=== PATIENT | female | born 1940 | race Hispanic/Latino ===

== ENCOUNTER 2019-03-24 19:02 | Inpatient (IN) | payer MEDICARE ==
[2019-03-24] MEDS ORDERED: SODIUM CHLORIDE 0.9% 250ML 250 ML IV ONE (19:37)
[2019-03-24] MEDS ORDERED: ONDANSETRON 4 MG/2 ML INJ IV ONE (19:37)
--- NOTE | 2019-03-24 19:40 | Emergency Department Report ---
ED General Adult HPI - General Chief complaint: Weakness Stated complaint: WEAKNESS Time Seen by Provider: 03/24/19 19:22 Source: patient, EMS (by EMS disclaimer), RN notes reviewed, old records reviewed Mode of arrival: Stretcher Limitations: No Limitations - History of Present Illness Initial comments: Primary care Dr.: Dr Nicole Noriega Cardiology: Dr Yasmine Jeff Past medical history: Heart disease, diabetes, hypertension, high cholesterol This is a pleasant 78-year-old female who is not known to this provider previously. Patient reports being in her usual state of health earlier on today, when at, around 6:00 PM, developed a change in sensation on the roof top of her mouth, feel flushed, and also felt unsteady. She has no physical pain at this time. She denies additional symptoms at this time. She states that today was "a good day for me." She reports being quite active today, reports compliance with her medications, denies dietary indiscretions, and state that symptoms do not have exacerbating, relieving factors, or radiation. -: Sudden Consistency: other Improves with: other Worsens with: other Associated Symptoms: other - Related Data Home Medications Medication Instructions Recorded Confirmed Last Taken Allopurinol 100 mg PO DAILY 08/02/17 03/24/19 Unknown Irbesartan 1 tab PO DAILY 03/24/19 03/24/19 Unknown Previous Rx's Medication Instructions Recorded Last Taken Type AtorvaSTATin [Lipitor] 40 mg PO QHS #30 tablet 08/06/17 Unknown Rx Cholecalciferol (Vitamin D3) 1,000 unit PO DAILY #30 capsule 08/06/17 Unknown Rx [Vitamin D3] Clopidogrel [Plavix] 75 mg PO QDAY #30 tablet 08/06/17 Unknown Rx Glimepiride [Amaryl] 1 mg PO QAM #30 tablet 08/06/17 Unknown Rx Levothyroxine [Synthroid] 100 mcg PO QAM@0600 #30 tablet 08/06/17 Unknown Rx Metformin HCl [metFORMIN ER 500 mg PO BID #60 [id number] 08/06/17 Unknown Rx Gastric] Metoprolol [Lopressor TAB] 25 mg PO BID #60 tablet 08/06/17 Unknown Rx NIFEdipine XL [Procardia Xl] 60 mg PO QDAY #30 tablet 08/06/17 Unknown Rx Allergies Allergy/AdvReac Type Severity Reaction Status Date / Time No Known Allergies Allergy Verified 08/02/17 23:12 ED Review of Systems ROS: Stated complaint: WEAKNESS Other details as noted in HPI Constitutional: malaise. denies: fever Eyes: denies: eye discharge, vision change ENT: denies: congestion Respiratory: denies: cough, wheezing Cardiovascular: denies: chest pain, syncope Gastrointestinal: nausea. denies: abdominal pain, vomiting Genitourinary: denies: dysuria Musculoskeletal: denies: myalgia Skin: denies: lesions Neurological: weakness Hematological/Lymphatic: denies: easy bleeding ED Past Medical Hx - Past Medical History Previous Medical History?: Yes Hx Hypertension: Yes Hx Heart Attack/AMI: Yes Hx Diabetes: Yes Additional medical history: hypothyroid, gout - Surgical History Past Surgical History?: Yes Hx Pacemaker: No Additional Surgical History: hysterectomy, Bilateral knee replacement, and right hip, stents x2 - Social History Smoking Status: Never Smoker Substance Use Type: None - Medications Home Medications: Home Medications Medication Instructions Recorded Confirmed Last Taken Type Allopurinol 100 mg PO DAILY 08/02/17 03/24/19 Unknown History AtorvaSTATin [Lipitor] 40 mg PO QHS #30 tablet 08/06/17 03/24/19 Unknown Rx Cholecalciferol (Vitamin D3) 1,000 unit PO DAILY #30 capsule 08/06/17 03/24/19 Unknown Rx [Vitamin D3] Clopidogrel [Plavix] 75 mg PO QDAY #30 tablet 08/06/17 03/24/19 Unknown Rx Glimepiride [Amaryl] 1 mg PO QAM #30 tablet 08/06/17 03/24/19 Unknown Rx Levothyroxine [Synthroid] 100 mcg PO QAM@0600 #30 tablet 08/06/17 03/24/19 Un known Rx Metformin HCl [metFORMIN ER 500 mg PO BID #60 [id number] 08/06/17 03/24/19 Unknown Rx Gastric] Metoprolol [Lopressor TAB] 25 mg PO BID #60 tablet 08/06/17 03/24/19 Unknown Rx NIFEdipine XL [Procardia Xl] 60 mg PO QDAY #30 tablet 08/06/17 03/24/19 Unknown Rx Irbesartan 1 tab PO DAILY 03/24/19 03/24/19 Unknown History ED Physical Exam - General Limitations: No Limitations General appearance: alert, in no apparent distress - Head Head exam: Present: atraumatic, normocephalic - Eye Eye exam: Present: normal appearance, PERRL, EOMI, other (visual acuity intact to finger counting, color perception, reading at a close distance). Absent: nystagmus - ENT ENT exam: Present: normal exam, normal orophraynx, mucous membranes moist, normal external ear exam - Neck Neck exam: Present: normal inspection, full ROM. Absent: tenderness, meningismus - Respiratory Respiratory exam: Present: normal lung sounds bilaterally. Absent: respiratory distress - Cardiovascular Cardiovascular Exam: Present: regular rate, normal rhythm, normal heart sounds. Absent: bradycardia, tachycardia, irregular rhythm, systolic murmur, diastolic murmur, rubs, gallop - GI/Abdominal GI/Abdominal exam: Present: soft. Absent: distended, tenderness, guarding, rebound, rigid, pulsatile mass - Extremities Exam Extremities exam: Present: normal inspection, full ROM, other (2+ pulses noted in the bilateral upper, lower extremities. There is no long bone tenderness. Musculoskeletal compartments are soft. The pelvis is stable.). Absent: pedal edema, joint swelling, calf tenderness - Back Exam Back exam: Present: normal inspection, full ROM. Absent: tenderness, CVA tenderness (R), CVA tenderness (L), paraspinal tenderness, vertebral tenderness - Neurological Exam Neurological exam: Present: alert (there is no pronator drift. There is normal [id number]. Patient is very tremulous in her bilateral upper extremities, and indicates a chronic intention tremor), oriented X3, abnormal gait (patient is walking with a broad-based slightly unsteady gait), other (there is no facial droop. The tongue is midline. Extraocular movements are intact bilaterally. Patient speaking in full complete sentences. Shoulder shrug is intact bilaterally. Hearing is grossly intact bilaterally. Visual acuity intact to finger counting and color perception at a close distance. 5/5 strength 4 extremities. Sensation intact to light touch in 4 extremities.). Absent: motor sensory deficit - Psychiatric Psychiatric exam: Present: anxious - Skin Skin exam: Present: warm, dry, intact, normal color. Absent: rash ED Course Vital Signs 03/24/19 03/24/19 03/24/19 19:21 19:30 20:00 Temperature 98.2 F Pulse Rate 60 60 59 L Respiratory 12 12 11 L Rate Blood Pressure 114/46 114/46 121/48 O2 Sat by Pulse 98 96 Oximetry 03/24/19 03/24/19 03/24/19 20:30 21:00 21:30 Temperature Pulse Rate 57 L 55 L 54 L Respiratory 11 L 13 13 Rate Blood Pressure 121/48 116/54 132/39 O2 Sat by Pulse 97 97 97 Oximetry 03/24/19 03/24/19 22:00 22:30 Temperature Pulse Rate 54 L 56 L Respiratory 17 21 Rate Blood Pressure 126/43 137/44 O2 Sat by Pulse 96 91 Oximetry - Reevaluation(s) Reevaluation #1: 03/24/19 21:22 Discussed with Hospital physician, Dr. Jiang, who has accepted the patient to the medical service. Patient resting comfortably in stretcher, and in no acute distress. ED Medical Decision Making - Lab Data Result diagrams: 03/24/19 19:57 03/24/19 19:57 Vital Signs 03/24/19 19:21 Temperature 98.2 F Pulse Rate 60 Respiratory 12 Rate Blood Pressure 114/46 O2 Sat by Pulse 98 Oximetry Lab Results 03/24/19 03/24/19 03/24/19 Range/Units 19:57 19:57 19:57 WBC 11.3 H (4.5-11.0) K/mm3 RBC 3.91 (3.65-5.03) M/mm3 Hgb 12.1 (10.1-14.3) gm/dl Hct 36.2 (30.3-42.9) % MCV 93 (79-97) fl MCH 31 (28-32) pg MCHC 34 (30-34) % RDW 13.7 (13.2-15.2) % Plt Count 192 (140-440) K/mm3 Lymph % (Auto) 19.3 (13.4-35.0) % Knott % (Auto) 10.2 H (0.0-7.3) % Eos % (Auto) 2.8 (0.0-4.3) % Baso % (Auto) 0.8 (0.0-1.8) % Lymph # 2.2 (1.2-5.4) K/mm3 Knott # 1.2 H (0.0-0.8) K/mm3 Eos # 0.3 (0.0-0.4) K/mm3 Baso # 0.1 (0.0-0.1) K/mm3 Seg Neutrophils % 66.9 (40.0-70.0) % Seg Neutrophils # 7.5 (1.8-7.7) K/mm3 PT 15.2 H (12.2-14.9) Sec. INR 1.21 H (0.87-1.13) APTT 32.1 (24.2-36.6) Sec. Thrombin Time 18.2 (15.1-19.6) Sec. Sodium 138 (137-145) mmol/L Potassium 4.2 (3.6-5.0) mmol/L Chloride 101.8 (98-107) mmol/L Carbon Dioxide 22 (22-30) mmol/L Anion Gap 18 mmol/L BUN 31 H (7-17) mg/dL Creatinine 1.4 H (0.7-1.2) mg/dL Estimated GFR 36 ml/min BUN/Creatinine Ratio 22 % Glucose 98 (65-100) mg/dL Calcium 8.6 (8.4-10.2) mg/dL Magnesium 1.90 (1.7-2.3) mg/dL Total Bilirubin 0.30 (0.1-1.2) mg/dL AST 26 (5-40) units/L ALT 21 (7-56) units/L Alkaline Phosphatase 106 (35-129) units/L Total Creatine Kinase 100 (30-135) units/L CK-MB (CK-2) 2.6 (0.0-4.0) ng/mL CK-MB (CK-2) Rel Index 2.6 (0-4) Troponin T < 0.010 (0.00-0.029) ng/mL Total Protein 6.5 (6.3-8.2) g/dL Albumin 3.6 L (3.9-5) g/dL Albumin/Globulin Ratio 1.2 % TSH (0.270-4.200) mlU/mL Salicylates (2.8-20.0) mg/dL Acetaminophen (10.0-30.0) ug/mL 03/24/19 03/24/19 03/24/19 Range/Units 19:57 19:57 19:57 WBC (4.5-11.0) K/mm3 RBC (3.65-5.03) M/mm3 Hgb (10.1-14.3) gm/dl Hct (30.3-42.9) % MCV (79-97) fl MCH (28-32) pg MCHC (30-34) % RDW (13.2-15.2) % Plt Count (140-440) K/mm3 Lymph % (Auto) (13.4-35.0) % Knott % (Auto) (0.0-7.3) % Eos % (Auto) (0.0-4.3) % Baso % (Auto) (0.0-1.8) % Lymph # (1.2-5.4) K/mm3 Knott # (0.0-0.8) K/mm3 Eos # (0.0-0.4) K/mm3 Baso # (0.0-0.1) K/mm3 Seg Neutrophils % (40.0-70.0) % Seg Neutrophils # (1.8-7.7) K/mm3 PT (12.2-14.9) Sec. INR (0.87-1.13) APTT (24.2-36.6) Sec. Thrombin Time (15.1-19.6) Sec. Sodium (137-145) mmol/L Potassium (3.6-5.0) mmol/L Chloride (98-107) mmol/L Carbon Dioxide (22-30) mmol/L Anion Gap mmol/L BUN (7-17) mg/dL Creatinine (0.7-1.2) mg/dL Estimated GFR ml/min BUN/Creatinine Ratio % Glucose (65-100) mg/dL Calcium (8.4-10.2) mg/dL Magnesium (1.7-2.3) mg/dL Total Bilirubin (0.1-1.2) mg/dL AST (5-40) units/L ALT (7-56) units/L Alkaline Phosphatase (35-129) units/L Total Creatine Kinase (30-135) units/L CK-MB (CK-2) (0.0-4.0) ng/mL CK-MB (CK-2) Rel Index (0-4) Troponin T (0.00-0.029) ng/mL Total Protein (6.3-8.2) g/dL Albumin (3.9-5) g/dL Albumin/Globulin Ratio % TSH 4.440 H (0.270-4.200) mlU/mL Salicylates < 0.3 L (2.8-20.0) mg/dL Acetaminophen < 5.0 L (10.0-30.0) ug/mL - EKG Data -: EKG Interpreted by Me EKG shows normal: sinus rhythm Rate: normal - EKG Data 03/24/19 21:10 Today's EKG shows a sinus rhythm, 60 beats for minute, normal axis, prolonged HI interval, QTC shows 496 ms, there is low voltage, there is poor R-wave progression, the EKG is abnormal, it is not consistent with ST elevation myocardial infarction. The EKG is abnormal, however it appears to be unchanged from prior EKG from 2017, there is no chest pain, not consistent with STEMI 03/24/19 21:12 - Radiology Data Radiology results: report reviewed, image reviewed Noncontrast CT scan of the brain is negative for acute disease. X-ray the chest is negative for acute disease. - Medical Decision Making Differential diagnosis, including but not limited to: Stroke, pneumonia, urinary tract infection, orthostasis, vagal event, structural cardiac disease Assessment and plan: 78-year-old female with complaint of malaise, weakness, flushing, fatigue, subjective unsteady gait. She is afebrile with reassuring vital signs. She has an NIH score of 0. Noncontrast CT scan of the brain is negative for acute disease. Her examination is not suggestive of a large vessel occlusion. Risk of TPA out way benefits, extensive discussion have with patient, we talked about TPA for possible stroke, however, she does not want the medicine out of concern for bleed. Patient was seen in evaluated with consulting stroke neurology, Dr. Pro, who also was in agreement with the aforementioned recommendations. The patient is amenable to hospitalization for further evaluation and manage ment. Her EKG is abnormal, she appears to have a first-degree AV block, however mentating appropriately, blood pressure is appropriate, and her EKG today is unchanged from prior, this may be contributing to her symptoms, however, she does not require transcutaneous or transvenous pacing. She'll need to be admitted to the medical service for further evaluation and management. We discussed this plan of care, and she is amenable. Urinalysis is pending at this time. Found to have minimal renal insufficiency. IV fluids ordered. Critical care attestation.: If time is entered above; I have spent that time in minutes in the direct care of this critically ill patient, excluding procedure time. ED Disposition Clinical Impression: TIA (transient ischemic attack), JIM (acute kidney injury), First degree AV block Disposition: OP ADMIT IP TO THIS HOSP Is pt being admited?: Yes Does the pt Need Aspirin: Yes Condition: Stable
--- NOTE | 2019-03-24 20:05 | Cat Scan Report ---
CT head/brain wo con INDICATION / CLINICAL INFORMATION: 78 years Female; MAIN: Stroke symptoms;CODE STROKE; CALL ED [phone]. TECHNIQUE: Routine CT head without contrast. All CT scans at this location are performed using CT dos e reduction for ALARA by means of automated exposure control. COMPARISON: None. FINDINGS: BRAIN / INTRACRANIAL CONTENTS: There is mild cerebral white matter disease most consistent with micro vascular angiopathy. There is also mild cerebral atrophy with associated prominence of the ventricula r system. There is no clear CT evidence of acute intracranial hemorrhage or significant mass effect. ORBITS: No significant abnormality of visualized orbits. SINUSES / MASTOIDS: No significant abnormality the visualized paranasal sinuses or mastoid air cells. CRANIOCERVICAL JUNCTION: No significant abnormality. ADDITIONAL FINDINGS: There is focal prominence of CSF attenuation along the medial left temporal lobe indicative of incidental arachnoid cyst. IMPRESSION: 1. 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 The study was specified as code stroke and called emergently to Dr. Schroeder in the ER at 6:57 PM [facility] standard time. Signer Name: Oscar Hull MD Signed: 03/24/2019 8:01 PM Workstation Name: [id number] Is mild chronic. No acute
--- NOTE | 2019-03-24 20:12 | Emergency Department Report ---
HPI - General Chief Complaint: Weakness Time Seen by Provider: 03/24/19 19:22 - HPI HPI: [facility] Date of Service: 03/24/2019 19:37:36 History of Present Illness: Patient is a 78 year old Female. Patient was brought by EMS for symptoms of weakness Patient present with complaints of feeling flush, numbness feeling of her mouth, and weak all over. She denies headache, chest pain, difficulty breathing, alte red vision, or speech. She has hx of MS with PCI and stent placement 2 years ago and is on DAPT with asa/plavix. She is feeling better at this time, ED MD noted some unsteadiness with walking but presently she has no dysmetria of any limb and nihss 0. CT head showed no acute hemorrhage or acute core infarct. CT head was reviewed. Examination: 1A: Level of Consciousness - Alert; keenly responsive + 0 1B: Ask Month and Age - Both Questions Right + 0 1C: Blink Eyes & Squeeze Hands - Performs Both Tasks + 0 2: Test Horizontal Extraocular Movements - Normal + 0 3: Test Visual Francois - No Visual Loss + 0 4: Test Facial Palsy (Use Grimace if Obtunded) - Normal symmetry + 0 5A: Test Left Arm Motor Drift - No Drift for 10 Seconds + 0 5B: Test Right Arm Motor Drift - No Drift for 10 Seconds + 0 6A: Test Left Leg Motor Drift - No Drift for 5 Seconds + 0 6B: Test Right Leg Motor Drift - No Drift for 5 Seconds + 0 7: Test Limb Ataxia (FNF/Heel-Navarrete) - No Ataxia + 0 8: Test Sensation - Normal; No sensory loss + 0 9: Test Language/Aphasia - Normal; No aphasia + 0 10: Test Dysarthria - Normal + 0 11: Test Extinction/Inattention - No abnormality + 0 NIHSS Score: 0 ED Past Medical Hx - Past Medical History Previous Medical History?: Yes Hx Hypertension: Yes Hx Heart Attack/AMI: Yes Hx Diabetes: Yes Additional medical history: hypothyroid, gout - Surgical History Past Surgical History?: Yes Hx Pacemaker: No Additional Surgical History: hysterectomy, Bilateral knee replacement, and right hip, stents x2 - Social History Smoking Status: Never Smoker Substance Use Type: None - Medications Home Medications: Home Medications Medication Instructions Recorded Confirmed Last Taken Type Allopurinol 100 mg PO DAILY 08/02/17 08/02/17 Unknown History Acetaminophen [Acetaminophen TAB] 81 mg PO Q4H PRN #30 tablet 08/06/17 Unknown Rx AtorvaSTATin [Lipitor] 40 mg PO QHS #30 tablet 08/06/17 Unknown Rx Cholecalciferol (Vitamin D3) 1,000 unit PO DAILY #30 capsule 08/06/17 Unknown Rx [Vitamin D3] Clopidogrel [Plavix] 75 mg PO QDAY #30 tablet 08/06/17 Unknown Rx Glimepiride [Amaryl] 1 mg PO QAM #30 tablet 08/06/17 Unknown Rx Glimepiride [Amaryl] 1 mg PO QDDIAB #30 tablet 08/06/17 Unknown Rx Levothyroxine [Synthroid] 100 mcg PO QAM@0600 #30 tablet 08/06/17 Unknown Rx Metformin HCl [metFORMIN ER 500 mg PO BID #60 [id number] 08/06/17 Unknown Rx Gastric] Metoprolol [Lopressor TAB] 25 mg PO BID #60 tablet 08/06/17 Unknown Rx NIFEdipine XL [Procardia Xl] 60 mg PO QDAY #30 tablet 08/06/17 Unknown Rx Valsartan [Diovan] 80 mg PO DAILY #30 tablet 08/06/17 Unknown Rx ED Review of Systems ROS: Stated complaint: WEAKNESS Other details as noted in HPI Physical Exam - Physical Exam Vital Signs: Vital Signs 03/24/19 19:21 Temperature 98.2 F Pulse Rate 60 Respiratory 12 Rate Blood Pressure 114/46 O2 Sat by Pulse 98 Oximetry General: CT head showed no acute hemorrhage or acute core infarct. CT head was reviewed. Examination: 1A: Level of Consciousness - Alert; keenly responsive + 0 1B: Ask Month and Age - Both Questions Right + 0 1C: Blink Eyes & Squeeze Hands - Performs Both Tasks + 0 2: Test Horizontal Extraocular Movements - Normal + 0 3: Test Visual Francois - No Visual Loss + 0 4: Test Facial Palsy (Use Grimace if Obtunded) - Normal symmetry + 0 5A: Test Left Arm Motor Drift - No Drift for 10 Seconds + 0 5B: Test Right Arm Motor Drift - No Drift for 10 Seconds + 0 6A: Test Left Leg Motor Drift - No Drift for 5 Seconds + 0 6B: Test Right Leg Motor Drift - No Drift for 5 Seconds + 0 7: Test Limb Ataxia (FNF/Heel-Navarrete) - No Ataxia + 0 8: Test Sensation - Normal; No sensory loss + 0 9: Test Language/Aphasia - Normal; No aphasia + 0 10: Test Dysarthria - Normal + 0 11: Test Extinction/Inattention - No abnormality + 0 NIHSS Score: 0 ED Course Vital Signs 03/24/19 19:21 Temperature 98.2 F Pulse Rate 60 Respiratory 12 Rate Blood Pressure 114/46 O2 Sat by Pulse 98 Oximetry ED Medical Decision Making - Medical Decision Making Impression: RO Acute Ischemic Stroke Comments: near syncope on differential. Vitals: pulse of 60 bp 114/46 Metrics: Last Known Well: 03/24/2019 18:00:00 [employer] Notification Time: 03/24/2019 19:36:50 Arrival Time: 03/24/2019 19:10:00 Stamp Time: 03/24/2019 19:37:36 Time First Login Attempt: 03/24/2019 19:43:00 Video Start Time: 03/24/2019 19:43:00 Symptoms: weakness NIHSS Start Assessment Time: 03/24/2019 19:51:00 Patient is not a candidate for tPA. Patient was not deemed candidate for tPA thrombolytics because of Sxs have resolved at this time.. Video End Time: 03/24/2019 19:55:00 CT head showed no acute hemorrhage or acute core infarct. CT head was reviewed. Advanced imaging was not obtained as the presentation was not suggestive of Large Vessel Occlusive Disease. Radiologist was not called back for review of advanced imaging because Not Obtained as the Presentation as Not Suggestive of Large Vessel Occlusive Disease ER Physician notified of the decision on thrombolytics management on 03/24/2019 19:57:00 Our recommendations are outlined below. Recommendations: Activate Stroke Protocol Admission/Order Set Stroke/Telemetry Floor Neuro Checks Bedside Swallow Eval DVT Prophylaxis IV Fluids, Normal Saline Head of Bed Below 30 Degrees Euglycemia and Avoid Hyperthermia (PRN Acetaminophen) Antiplatelet Therapy Recommended Recommended Scan: MRI Head Without Contrast Carotid Dopplers Echocardiogram - Transthoracic Echocardiogram Therapies: Physical Therapy, Occupational Therapy, Speech Therapy Assessment When Applicable Dysphaghia Screen: Swallow Evaluation, Bedside DVT prophylaxis: Choice of Primary Team Disposition: Follow up with Teleneurology Follow up Sign Out: Discussed with Emergency Department Provider Patient was informed the Neurology Consult would happen via TeleHealth consult by way of interactive audio and video telecommunications and consented to receiving care in this manner. Due to the immediate potential for life-threatening deterioration due to underlying acute neurologic illness, I spent 35 minutes providing critical care. This time includes time for face to face visit via telemedicine, review of medical records, imaging studies and discussion of findings with providers, the patient and/or family. Dr Murali Pro [employer] Critical care attestation.: If time is entered above; I have spent that time in minutes in the direct care of this critically ill patient, excluding procedure time. ED Disposition Clinical Impression: TIA (transient ischemic attack) Disposition: [id number] OP ADMIT IP TO THIS HOSP Is pt being admited?: Yes Condition: Stable
[2019-03-24 20:25] LABS: Basophils # (Auto) 0.1 K/mm3 (0.0-0.1); Basophils % (Auto) 0.8 % (0.0-1.8); Eosinophils # (Auto) 0.3 K/mm3 (0.0-0.4); Eosinophils % (Auto) 2.8 % (0.0-4.3); Hematocrit 36.2 % (30.3-42.9); Hemoglobin 12.1 gm/dl (10.1-14.3); Lymphocytes # (Auto) 2.2 K/mm3 (1.2-5.4); Lymphocytes % (Auto) 19.3 % (13.4-35.0); Mean Corpuscular HGB Conc 34 % (30-34); Mean Corpuscular Volume 93 fl (79-97); Monocytes # (Auto) 1.2 K/mm3 (0.0-0.8); Monocytes % (Auto) 10.2 % (0.0-7.3); Platelet Count 192 K/mm3 (140-440); Red Blood Count 3.91 M/mm3 (3.65-5.03); Red Cell Distribution Width 13.7 % (13.2-15.2)
--- NOTE | 2019-03-24 20:30 | XRay Report ---
CHEST 1 VIEW INDICATION / CLINICAL INFORMATION: weak ataxia. COMPARISON: 08/06/2017 FINDINGS: SUPPORT DEVICES: None. HEART / MEDIASTINUM: No significant abnormality. LUNGS / PLEURA: No significant pulmonary or pleural abnormality. No pneumothorax. ADDITIONAL FINDINGS: No significant additional findings. IMPRESSION: 1. No significant change Signer Name: Dima Barker MD Signed: 03/24/2019 8:25 PM Workstation Name: [id number]
[2019-03-24 20:35] LABS: INR 1.21 (0.87-1.13); Partial Thromboplastin Time 32.1 Sec. (24.2-36.6); Thrombin Time 18.2 Sec. (15.1-19.6)
[2019-03-24 20:49] LABS: Creatine Kinase MB 2.6 ng/mL (0.0-4.0)
[2019-03-24 20:50] LABS: Alanine Aminotransferase 21 units/L (7-56); Albumin 3.6 g/dL (3.9-5); BUN/Creatinine Ratio 22; Blood Urea Nitrogen 31 mg/dL (7-17); Calcium 8.6 mg/dL (8.4-10.2); Hemolysis Index 7
[2019-03-24] MEDS ORDERED: ASPIRIN 81 MG TAB CHEW PO ONE (21:15)
[2019-03-24] MEDS ORDERED: ONDANSETRON 4 MG/2 ML INJ IV PRN (21:40)
[2019-03-24] MEDS ORDERED: MAGNESIUM HYDROXIDE (MOM) ORAL LIQD UDC PO PRN (21:40)
[2019-03-24] MEDS ORDERED: ACETAMINOPHEN 325 MG TAB PO PRN (21:40)
--- NOTE | 2019-03-24 21:46 | History and Physical Report ---
History of Present Illness Date of examination: 03/24/19 History of present illness: 78-year-old woman with a history of hypertension, diabetes, coronary artery disease, hypothyroidism, gout comes emergency room with complaints of having a funny feeling in the roof of her mouth followed by diaphoresis, she then became unstable on her feet. Her symptoms lasted for several hours Review of systems Constitutional: no weight loss, chills Ears, eyes, nose, mouth and throat: no nasal congestion, no nasal discharge, no sinus pressure, no vision change, no red eye. Neck: No neck pain or rigidity. Cardiovascular: no palpitations, chest pain Respiratory: No cough, shortness of breath Gastrointestinal: no abdomional pain. hematochezia Genitourinary : no dysuria, frequency , no hematuria Musculoskeletal: no joint swelling or muscle ache Integumentary: no rash, no pruritis Neurological: no parathesias, no numbness, no focal weakness Endocrine: no cold or heat intolerance, no polyuria or polydipsia Hematologic/Lymphatic: no easy bruising, no easy bleeding, no gland swelling Allergic/Immunologic: no urticaria, no angioedema. PAST MEDICAL HISTORY:hypertension, diabetes PAST SURGICAL HISTORY: Left nephrectomy, Bilateral knees, hip and hysterectomy SOCIAL HISTORY: Denies alcohol, tobacco, drugs FAMILY HISTORY: Hypertension, diabetes Medications and Allergies Allergies Allergy/AdvReac Type Severity Reaction Status Date / Time No Known Allergies Allergy Verified 08/02/17 23:12 Home Medications Medication Instructions Recorded Confirmed Last Taken Type Allopurinol 100 mg PO DAILY 08/02/17 03/24/19 Unknown History AtorvaSTATin [Lipitor] 40 mg PO QHS #30 tablet 08/06/17 03/24/19 Unknown Rx Cholecalciferol (Vitamin D3) 1,000 unit PO DAILY #30 capsule 08/06/17 03/24/19 Unknown Rx [Vitamin D3] Clopidogrel [Plavix] 75 mg PO QDAY #30 tablet 08/06/17 03/24/19 Unknown Rx Glimepiride [Amaryl] 1 mg PO QAM #30 tablet 08/06/17 03/24/19 Unknown Rx Levothyroxine [Synthroid] 100 mcg PO QAM@0600 #30 tablet 08/06/17 03/24/19 Unknown Rx Metformin HCl [metFORMIN ER 500 mg PO BID #60 [id number] 08/06/17 03/24/19 Unknown Rx Gastric] Metoprolol [Lopressor TAB] 25 mg PO BID #60 tablet 08/06/17 03/24/19 Unknown Rx NIFEdipine XL [Procardia Xl] 60 mg PO QDAY #30 tablet 08/06/17 03/24/19 Unknown Rx Irbesartan 1 tab PO DAILY 03/24/19 03/24/19 Unknown History Active Meds: Active Medications Acetaminophen (Tylenol) 650 mg PO Q4H PRN PRN Reason: Pain, Mild (1-3) Aspirin (Aspirin) 325 mg PO QDAY LUIGI Atorvastatin Calcium (Lipitor) 40 mg PO QHS LUIGI Bisacodyl (Dulcolax) 10 mg MO QDAY PRN PRN Reason: Constipation Enoxaparin Sodium (Enoxaparin) 30 mg SUB-Q QDAY LUIGI Magnesium Hydroxide (Milk Of Magnesia) 30 ml PO Q4H PRN PRN Reason: Constipation Ondansetron HCl (Zofran) 4 mg IV Q8H PRN PRN Reason: Nausea And Vomiting Sodium Chloride (Sodium Chloride Flush Syringe 10 Ml) 10 ml INJ PRN PRN PRN Reason: LINE FLUSH Exam - Physical Exam Narrative exam: Gen. appearance: Patient lying in bed, no apparent distress HEENT: Normocephalic, atraumatic, pupils equally round and reactive to light, extraocular movement intact, and no sclericterus,. No JVD or thyromegaly or nodule,neck supple, no carotid bruit ,mucous membranes moist, no exudate or erythema Heart: S1, S2, regular rate and rhythm Lungs: Clear to auscultation bilaterally, breathing comfortable Abdomen: Positive bowel sounds, nontender, nondistended, no organomegaly Extremity: No edema, cyanosis, clubbing Skin: No rash, nodules, warm, dry Neuro: Oriented 3, cranial nerves II-12 intact, speech is fluent, unsteady gait, and sensory intact - Constitutional Vitals: Temp Pulse Resp BP Pulse Ox 98.2 F 60 12 114/46 98 03/24/19 19:21 03/24/19 19:21 03/24/19 19:21 03/24/19 19:21 03/24/19 19:21 Results - Labs CBC & Chem 7: 03/25/19 07:33 03/25/19 07:33 Labs: Abnormal lab results 03/24/19 03/24/19 03/24/19 Range/Units 19:57 19:57 19:57 WBC 11.3 H (4.5-11.0) K/mm3 [place] % (Auto) 10.2 H (0.0-7.3) % [place] # 1.2 H (0.0-0.8) K/mm3 PT 15.2 H (12.2-14.9) Sec. INR 1.21 H (0.87-1.13) BUN 31 H (7-17) mg/dL Creatinine 1.4 H (0.7-1.2) mg/dL Albumin 3.6 L (3.9-5) g/dL TSH (0.270-4.200) mlU/mL Salicylates (2.8-20.0) mg/dL Acetaminophen (10.0-30.0) ug/mL 03/24/19 03/24/19 03/24/19 Range/Units 19:57 19:57 19:57 WBC (4.5-11.0) K/mm3 [place] % (Auto) (0.0-7.3) % [place] # (0.0-0.8) K/mm3 PT (12.2-14.9) Sec. INR (0.87-1.13) BUN (7-17) mg/dL Creatinine (0.7-1.2) mg/dL Albumin (3.9-5) g/dL TSH 4.440 H (0.270-4.200) mlU/mL Salicylates < 0.3 L (2.8-20.0) mg/dL Acetaminophen < 5.0 L (10.0-30.0) ug/mL Assessment and Plan Assessment TIA Renal insufficiency, acute Hypertension Diabetes CAD Plan Admit to medicine Obtain MRI of the head, carotid doppler, echo Start plavix, statin IV hydralazine as needed for blood pressure control Consult neurology, physical and occupational, speech therapy Start IV fluid, hold irbesartan, monitor kidney function Check fingersticks and initiate insulin sliding scale Continue appropriate outpatient medication DVT prophylaxis
[2019-03-24] MEDS ORDERED: hydrALAZINE 20 MG/1 ML INJ IV PRN (21:49)
[2019-03-25 04:15] VITALS: BP 163/48
[2019-03-25] MEDS ORDERED: LEVOTHYROXINE 100 MCG TAB PO SCH (06:00)
[2019-03-25 06:26] LABS: Chol/HDL Ratio 2.64 %
[2019-03-25] MEDS ORDERED: metFORMIN XR 500MG TAB PO SCH (08:00)
[2019-03-25] MEDS ORDERED: GLIMEPIRIDE 2 MG TAB PO SCH (08:00)
[2019-03-25 08:16] LABS: Hematocrit 37.7 % (30.3-42.9); Hemoglobin 12.5 gm/dl (10.1-14.3); Mean Corpuscular HGB Conc 33 % (30-34); Mean Corpuscular Volume 94 fl (79-97); Platelet Count 156 K/mm3 (140-440); Red Blood Count 4.03 M/mm3 (3.65-5.03); Red Cell Distribution Width 13.9 % (13.2-15.2)
[2019-03-25 08:35] LABS: Calcium 8.7 mg/dL (8.4-10.2)
--- NOTE | 2019-03-25 09:14 | Death Note ---
Note Date of : 03/25/19 Time of : 08:58 Time Pronounced: 08:58
--- NOTE | 2019-03-25 09:16 | Event Note ---
Date: 03/25/19 Patient admitted last night to r/o stroke. This morning code blue called, patient PEA. Code run per protocol for 22 mins but patient did not survive. Patient pronounced 08:58am on 03/25/19.
--- NOTE | 2019-03-25 09:17 | Death Summary ---
Summary - Providers Date of service: 03/25/19 Consults: 03/24/19 Consult to Physician [CONS] Routine Comment: Consulting Provider: JOSIAH BORRERO Physician Instructions: Reason For Exam: tia 03/24/19 21:40 Occupational Therapy Evaluate and Treat [CONS] Routine Comment: Reason For Exam: Neuro deficits Physical Therapy Evaluation and Treat [CONS] Routine Comment: Reason For Exam: Neuro deficits Attending: KEYUR GARCÍA - summary Date of admission: 03/24/19 21:40 Date of : 03/25/19 Procedures/treatments rendered: Patient is 78 yo with a history of hypertension, diabetes, coronary artery disease, hypothyroidism, gout. She presented to Emergency Room with complaints of having a funny feeling in the roof of her mouth followed by diaphoresis, she then became unstable on her feet. Her symptoms lasted for several hours. Patient was seen and evaluated in emergency department. CT Head did not show any acute stroke. Labs showed elevated creatinine at 1.4 revealing acute kidney injury. She was admitted to telemetry for further evaluation. However on morning of following day , less than 12 hrs after admission, Alan Reynold was called because of cardiac arrest. She was in PEA. Code Blue was run as per ACLS guidelines with CPR, several rounds of epinephrine, Bicarb . However she did not survive. She was pronounced at 08:58 on 03/25/19. I called and discussed with her Sister who lives out of town. - Final diagnosis (1) Myocardial infarction acute Note: Final diagnosis: (2) JIM (acute kidney injury) Note: Final diagnosis: (3) DMII (diabetes mellitus, type 2) Qualifiers: Diabetes mellitus termination clerk insulin use: with termination clerk use Diabetes mellitus complication status: with circulatory complication Note: Final diagnosis: (4) Hypertension Note: Final diagnosis: (5) Patient in hospital Note: Final diagnosis:
--- NOTE | 2019-03-25 09:35 | Event Note ---
Date: 03/25/19 Casing Tester I was getting off the elevator and nurses was running towards room 451 saying she was a code blue. 451 is first room, closest to elevator. As i entered the room, patient was blue, unconscious, pulseless, eyes were already fixed and dilated. Rhythm was PEA. First thing that was done was chest compression started by nurse Josi. Dr. Lancaster came immediately after and took over care, Epi was being given.
[2019-03-25] MEDS ORDERED: CLOPIDOGREL 75 MG TAB PO SCH (10:00)
[2019-03-25] MEDS ORDERED: CHOLECALCIFEROL (VIT D3) 1000 UNIT TAB PO SCH (10:00)
[2019-03-25] MEDS ORDERED: ENOXAPARIN 40 MG/0.4 ML INJ SUB-Q SCH (10:00)
[2019-03-25] MEDS ORDERED: allopurinoL 100 MG TAB PO SCH (10:00)
[2019-03-25] MEDS ORDERED: ASPIRIN 325 MG TAB PO SCH (10:00)
--- NOTE | 2019-03-25 17:24 | Event Note ---
Date: 03/25/19 Consulted to see patient after I rounded on 03/24/19 but unfortunately before pt could be seen on 03/25 pt .
== END 2019-03-25 09:07 | DRG 69 ==
LOC: ED 19:02 → 4A 21:40 → OBSVTOIN 03-25 09:06
PROVIDERS: ADMIT Internal Medicine; ATTEND Internal Medicine
DX: G45.9 Transient cerebral ischemic attack, unspecified (principal); N17.9 Acute kidney failure, unspecified; I44.0 Atrioventricular block, first degree; E11.9 Type 2 diabetes mellitus without complications; I25.10 Atherosclerotic heart disease of native coronary artery without angina pectoris; I10 Essential (primary) hypertension; E03.9 Hypothyroidism, unspecified; M10.9 Gout, unspecified; Z96.653 Presence of artificial knee joint, bilateral; Z90.710 Acquired absence of both cervix and uterus; Z82.49 Family history of ischemic heart disease and other diseases of the circulatory system; Z90.5 Acquired absence of kidney; Z83.3 Family history of diabetes mellitus; Z79.899 Other long term (current) drug therapy; I25.2 Old myocardial infarction; Z95.5 Presence of coronary angioplasty implant and graft
CPT/HCPCS: 31500; 36415; 70450; 71045; 80048; 80053; 80061; 80320; 82550; 82553; 82962; 83735; 84443; 84484; 85025; 85027; 85610; 85670; 85730; 92950; 93005; 93010; 96365; G0378; A9270-GY; G0480; J2405; J7050